=== PATIENT | female | born 1950 | race Caucasian/White ===

== ENCOUNTER 2022-05-08 00:02 | Emergency (ER) | payer BC, MEDICAID ==
[~2022-05-08] VITALS: Ht 152.4 cm; Wt 68.0 kg
[2022-05-08 01:33] LABS: Basophils # (auto) 0 10 ^3/uL (0-0.2); Basophils % (auto) 0.5 % (0.0-2.0); Eosinophils # (auto) 0.1 10 ^3/uL (0-0.8); Eosinophils % (auto) 1.1 % (0.0-7.0); Hematocrit 45.5 % (36.0-46.0); Hemoglobin 15.5 g/dL (12.2-16.2); Lymphocytes # (auto) 1.4 10 ^3/uL (0.4-5.4); Lymphocytes % (auto) 15.2 % (10.0-50.0); Mean Corpuscular Hemoglobin 32.5 pg (28.0-32.0); Mean Corpuscular Volume 95.6 fL (80.0-100.0); Monocytes % (auto) 11.4 % (0.0-12.0); Neutrophils # (auto) 6.4 10 ^3/uL (1.6-8.6); Neutrophils % (auto) 71.8 % (37.0-80.0); Nucleated Red Blood Cells % 0.1 %; Red Blood Cells 4.76 10^6/uL (4.0-5.20); Red Cell Distribution Width 14.5 % (11.8-14.3); White Blood Cell 8.9 10^3/uL (4.4-10.8)
[2022-05-08 01:50] LABS: Potassium 3.6 mmol/L (3.5-5.1)
[2022-05-08 01:54] LABS: Albumin 3.9 g/dL (3.4-5.0); BUN/Creatinine Ratio 20.1
[2022-05-08 01:57] LABS: Bilirubin, Total 0.6 mg/dL (0.2-1.0); Total Protein 6.8 g/dL (6.4-8.2)
[2022-05-08 03:10] VITALS: BP 102/70
== END 2022-05-08 03:59 | disposition home or self-care (01) ==
LOC: EDBD 00:02 → ER 00:02
DX: R55 Syncope and collapse (principal); T40.715A Adverse effect of cannabis, initial encounter; Y92.89 Other specified places as the place of occurrence of the external cause
CPT/HCPCS: 36415; 70450; 80053; 80320; 85025; 93005

== ENCOUNTER 2024-12-30 21:39 | Emergency (ER) | payer BC ==
[~2024-12-30] VITALS: Ht 154.9 cm; Wt 72.1 kg
[2024-12-30] MEDS: SODIUM CHLORIDE 0.9% 1,000 ML IV ONE (00:25)
[2024-12-30 22:43] VITALS: TEMP 99
--- NOTE | 2024-12-30 23:26 | DVH ---
CHEST RADIOGRAPH Indication: sob Technique: Single frontal view of the chest was obtained COMPARISON: CT CHEST WO/W on DOS: 06/19/23 FINDINGS: Lines and Tubes: None Lungs: 1.9 cm nodular density within the central left upper lung zone. No evidence of focal consolida tion. Pleura: No effusion. No pneumothorax. Cardiomediastinal contours: Unremarkable Bones: Unremarkable IMPRESSION: 1. No acute cardiopulmonary process. 2. 1.9 cm nodular density within the central left upper lung zone consistent with partially calcified pleural thickening described on prior CT chest.
[2024-12-30 23:28] LABS: Hematocrit 40.2 % (36.0-46.0); Hemoglobin 13.7 g/dL (12.2-16.2); Mean Corpuscular Hemoglobin 34.1 pg (28.0-32.0); Mean Corpuscular Volume 100.5 fL (80.0-100.0); Nucleated Red Blood Cells % 0.1 %
--- NOTE | 2024-12-30 23:29 | ED.PDOC ---
GI ASSESSMENT HPI Comments 74-year-old female who came to ER for nausea and vomiting. Patient has history of hypertension and COPD. At around 3:00 p.m. today, patient drank some protein shake/powder, and shortly afterwards she started having abdominal discomfort, with the episodes of nausea, vomiting and loose nonbloody diarrhea. Patient has a complaining of states shortness a breath. Upon arrival blood pressure was 217/105 mm Hg, and was saturating 95% on room air. Chief Complaint: Nausea/Vomiting Time Seen by MD: 23:28 Primary Care Provider: [employer] Reviewed Notes: Nurses Notes Allergies: Coded Allergies: NO KNOWN ALLERGIES (Unverified , 05/19/15) Home Meds No Active Prescriptions or Reported Meds Information Source: Patient Mode of Arrival: Ambulatory Timing: Hours Duration: Since onset Quality: Aching, Cramping Vomitus: Watery Stool: Loose, Watery Severity: Moderate Recent: Possible spoiled food Recent Hx of: None Pain Location: Epigastric Associated sign and symptoms: Nausea, Vomiting, Diarrhea, Abdominal Pain Past Medical History PAST MEDICAL HISTORY: COPD, HTN Surgical History: Denies all surgeries NOVELTIES SALES REPRESENTATIVE History: No Pertinent NOVELTIES SALES REPRESENTATIVE History Family History Family History: Unobtainable Social History Smoker: Non-Smoker Alcohol: Denies ETOH Use Drugs: Denies Drug Use Lives In: Home Constitutional: denies: chills, diaphoresis, fatigue, fever, malaise, sweats, weakness, others EENTM: denies: blurred vision, double vision, ear bleeding, ear discharge, ear drainage, ear pain, ear ringing, eye pain, eye redness, hearing loss, mouth pain, mouth swelling, nasal discharge, nose bleeding, nose congestion, nose pain, photophobia, tearing, throat pain, throat swelling, voice changes, others Respiratory: reports: shortness of breath; denies: cough, hemoptysis, orthopnea, SOB at rest, SOB with excertion, stridor, wheezing, others Cardiovascular: denies: chest pain, dizzy spells, diaphoresis, Dyspnea on exertion, edema, irregular heart beat, left arm pain, lightheadedness, palpitations, PND, syncope, others Gastrointestinal: reports: abdominal pain, diarrhea, nausea, vomiting; denies: abdomen distended, blood streaked bowels, constipated, dysphagia, difficulty swallowing, hematemesis, melena, poor appetite, poor fluid intake, rectal bleeding, rectal pain, others Genitourinary: denies: abnormal vagina bleeding, burning, dyspareunia, dysuria, flank pain, frequency, hematuria, incontinence, pain, , vagina discharge, urgency, others Neurological: denies: dizziness, fainting, headache, left sided numbness, left sided weakness, numbness, paresthesia, pre-existing deficit, right sided numbness, right sided weakness, seizure, speech problems, tingling, tremors, weakness, others Musculoskeletal: denies: back pain, gout, joint pain, joint swelling, muscle pain, muscle stiffness, neck pain, others Integumetry: denies: bruises, change in color, change in hair/nails, dryness, laceration, lesions, lumps, rash, wounds, others Allergic/Immunocompromised: denies: Difficulty Healing, Frequent Infections, Hives, Itching, others Hematologic/Lymphatic: denies: anemia, blood clots, easy bleeding, easy bruising, swollen glands, others Endocrine: denies: excessive hunger, excessive sweating, excessive thirst, excessive urination, flushing, intolerance to cold, intolerance to heat, une xplained weight gain, unexplained weight loss, others Psychiatric: denies: anxiety, bipolar disorder, depression, hopeless, panic disorder, schizophrenia, sleepless, suicidal, others Physical Exam General Appearance: No Apparent Distress, Normal HEENT: Normal ENT Inspection, Pharynx Normal, TMs Normal Neck: Full Range of Motion, Non-Tender, Normal, Normal Inspection Respiratory: Chest Non-Tender, Lungs Clear, No Accessory Muscle Use, No Respiratory Distress, Normal Breath Sounds Cardiovascular: No Edema, No JVD, No Murmur, No Gallop, Normal Peripheral Pulses, Regular Rate/Rhythm Breast Exam: Deferred Gastrointestinal: No Organomegaly, Non Tender, No Pulsatile Mass, Normal Bowel Sounds, Soft Genitalia: Deferred Pelvic: Deferred Rectal: Deferred Extremities: No calf tenderness, Normal capillary refill, Normal inspection, Normal range of motion, Non-tender, No pedal edema Musculoskeletal : Apperance: Normal Neurologic: Alert, circulation representative II-XII nml as Tested, No Motor Deficits, Normal Affect, Normal Mood, No Sensory Deficits Cerebellar Function: Normal Reflexes: Normal Skin: Dry, Normal Color, Warm Lymphatic: No Adenopathy Was a procedure done? Was a procedure done?: No GI differential Dx Differential Diagnosis: Diverticular disease, Gastritis/PUD, Gastroenteritis, UTI, Urolithiasis, Dehydration, Electrolyte Imbalance, Food Poisoning X-Ray, Labs, Meds, VS Vital Signs Date Time Temp Pulse Resp B/P (MAP) Pulse Ox O2 Delivery O2 Flow Rate FiO2 12/30/24 22:43 99.0 92 18 217/105 (142) 95 99.0 12/30/24 21:40 97.7 91 22 195/81 92 97.7 Lab Test 12/30/24 23:55 12/30/24 22:59 Range/Units Troponin I High Sensitivity 22 17 </=34 ng/L White Blood Count 6.7 4.4-10.8 10^3/uL Red Blood Count 4.00 4.0-5.20 10^6/uL Hemoglobin 13.7 12.2-16.2 g/dL Hematocrit 40.2 36.0-46.0 % Mean Corpuscular Volume 100.5 H 80.0-100.0 fL Mean Corpuscular Hemoglobin 34.1 H 28.0-32.0 pg Mean Corpuscular Hemoglobin Concent 34.0 32.0-36.0 g/dL Red Cell Distribution Width 14.7 H 11.8-14.3 % Platelet Count 310 140-450 10^3/uL Mean Platelet Volume 7.1 6.9-10.8 fL Neutrophils (%) (Auto) 83.4 H 37.0-80.0 % Lymphocytes (%) (Auto) 9.9 L 10.0-50.0 % Monocytes (%) (Auto) 5.5 0.0-12.0 % Eosinophils (%) (Auto) 0.3 0.0-7.0 % Basophils (%) (Auto) 0.9 0.0-2.0 % Neutrophils # (Auto) 5.6 1.6-8.6 10 ^3/uL Lymphocytes # (Auto) 0.7 0.4-5.4 10 ^3/uL Monocytes # (Auto) 0.4 0-1.3 10 ^3/uL Eosinophils # (Auto) 0 0-0.8 10 ^3/uL Basophils # (Auto) 0.1 0-0.2 10 ^3/uL Nucleated Red Blood Cells 0.1 % Sodium Level 138 136-145 mmol/L Potassium Level 3.6 3.5-5.1 mmol/L Chloride Level 101 98-107 mmol/L Carbon Dioxide Level 19 L 20-31 mmol/L Anion Gap 18 H 5-15 Blood Urea Nitrogen 25 H 9-23 mg/dL Creatinine 1.50 H 0.550-1.02 mg/dL Glomerular Filtration Rate Calc 37 >90 mL/min BUN/Creatinine Ratio 16.7 10.0-20.0 Serum Glucose 116 H 74-106 mg/dL Calcium Level 10.6 H 8.7-10.4 mg/dL Current Medications Medications (Trade) Dose Ordered Sig/Jose Carlos Route Start Time Stop Time Status Last Admin Sodium Chloride 1,000 ml @ 1,000 mls/hr Q1H ONCE IV 12/30/24 23:00 12/30/24 23:59 DC 12/30/24 00:25 Ondansetron HCl (Zofran) 4 mg ONCE ONCE IV 12/30/24 23:00 12/30/24 23:01 DC 12/30/24 23:30 Famotidine (Pepcid Injection) 20 mg ONCE ONCE IV 12/30/24 23:00 12/30/24 23:01 DC 12/30/24 23:30 CHEST RADIOGRAPH Indication: sob Technique: Single frontal view of the chest was obtained COMPARISON: CT CHEST WO/W on DOS: 06/19/23 FINDINGS: Lines and Tubes: None Lungs: 1.9 cm nodular density within the central left upper lung zone. No evidence of focal consolidation. Pleura: No effusion. No pneumothorax. Cardiomediastinal contours: Unremarkable Bones: Unremarkable IMPRESSION: 1. No acute cardiopulmonary process. 2. 1.9 cm nodular density within the central left upper lung zone consistent with partially calcified pleural thickening described on prior CT chest. Time of 1ST Reevaluation: 23:26 Reevaluation 1ST: Unchanged Patient Education/Counseling: Diagnosis, Treatment Family Education/Counseling: No Family Present SEPSIS Sepsis Screen Date sepsis recognized/suspect: Dec 30, 2024 Time Sepsis recognized/suspect: 2143 Recent Procedure: No On Antibiotic Therapy: No Respiratory Rate >20: Yes Heart Rate >90: Yes Temp<36 C (96.8 F) or >38.3 C: No SBP <90 or MAP <65 mmHG: No New Acute Mental Status Change: No Is the patient on CPAP, BIPAP,: No Physician Orders Urinalysis (12/30/24 22:53) Chest Portable (12/30/24 22:53) Electrocardigram (12/30/24 22:53) Electrocardigram (12/30/24 23:53) Electrocardigram (12/31/24 01:53) Hydralazine Injection (Apresoline Inject (12/31/24 02:00) Vital Signs Date Time Temp Pulse Resp B/P (MAP) Pulse Ox O2 Delivery O2 Flow Rate FiO2 12/30/24 22:43 99.0 92 18 217/105 (142) 95 99.0 12/30/24 21:40 97.7 91 22 195/81 92 97.7 Laboratory Tests Test 12/30/24 22:59 White Blood Count 6.7 10^3/uL (4.4-10.8) Medications Medications Dose Ordered Sig/Jose Carlos Route Start Time Stop Time Status Last Admin Dose Admin Famotidine 20 mg ONCE ONCE IV 12/30/24 23:00 12/30/24 23:01 DC 12/30/24 23:30 Ondansetron HCl 4 mg ONCE ONCE IV 12/30/24 23:00 12/30/24 23:01 DC 12/30/24 23:30 Sodium Chloride 1,000 ml @ 1,000 mls/hr Q1H ONCE IV 12/30/24 23:00 12/30/24 23:59 DC 12/30/24 00:25 Departure 1 Departure Time of Disposition: 01:50 (Patient presented with hypertension and symptoms concerning for hypertensive emergency. Patient is receiving iv blood pressure medications requiring intensive monitoring. Data: 1. I ordered and reviewed the result of at least 3 labs including a CBC, BMP, and Urinalysis. 2. I independently interpreted the following tests: Chest x-ray with a chronic nodule.. EKG which is Normal Sinus RhythmRisk:This patient has a high risk of morbidity due to further diagnostic testing or treatment and may suffer from an acute cardiac disorder. Workup reveals hypertensive emergency and patient should be admitted for further workup. and possible expert consultation. ) Impression: Primary Impression: Hypertensive urgency Additional Impressions: Shortness of breath Nausea and vomiting Disposition: ADMITTED INPATIENT Admit to: Tele Condition: Guarded e-Prescriptions No Active Prescriptions or Reported Meds Critical Care Note Critical Care Time?: Yes Critical care comment: Hypertensive urgency Authorized and Performed by: Tana Davila MD Total critical care time: Approximately 39 minutes Due to a high probability of clinically significant, life threatening deteriora tion, the patient required my highest level of preparedness to intervene emergently and I personally spent this critical care time directly and personally managing the patient. This critical care time included obtaining a history; examining the patient; pulse oximetry; ordering and review of studies; arranging urgent treatment with development of a management plan; evaluation of patient's response to treatment; frequent reassessment; and, discussions with other providers. This critical care time was performed to assess and manage the high probability of imminent, life-threatening deterioration that could result in multi-organ failure. It was exclusive of separately billable procedures and treating other patients and teaching time. Please see my other sections and the rest of the note for further information on patient assessment and treatment. Stability Stability form required: No Heart Score Heart Score: Heart Score Response (Comments) Value History N/A 0 EKG N/A 0 Age N/A 0 Risk Factors N/A 0 Troponin N/A 0 Total 0 I personally scribed for TANA DAVILA MD ([email or web address]) on 12/30/24 at 23:29. Electronically submitted by Andrea Mendez (Vinny). I personally scribed for TANA DAVILA MD ([email or web address]) on 12/31/24 at 00:41. Electronically submitted by Andrea Mendez (Vinny). TANA DAVILA MD Dec 30, 2024 23:29
[2024-12-30] MEDS: ONDANSETRON HCL 4 MG/2 ML VIAL IV ONE (23:30)
[2024-12-30] MEDS: FAMOTIDINE (10MG/ML) 2ML VL IV ONE (23:30)
[2024-12-30 23:38] LABS: Chloride 101 mmol/L (98-107); Potassium 3.6 mmol/L (3.5-5.1); Sodium 138 mmol/L (136-145)
[2024-12-30 23:39] LABS: Anion Gap 18 (5-15)
[2024-12-30 23:44] LABS: BUN/Creatinine Ratio 16.7 (10.0-20.0); Calcium 10.6 mg/dL (8.7-10.4); Carbon Dioxide 19 mmol/L (20-31)
[2024-12-30 23:47] LABS: Blood Urea Nitrogen 25 mg/dL (9-23); Glucose 116 mg/dL (74-106)
[2024-12-31] MEDS: IBUPROFEN 400 MG TAB PO ONE (02:03)
[2024-12-31] MEDS: hydrALAZINE HCL 20 MG/ML VL IV ONE (02:04)
[2024-12-31 02:36] VITALS: BP 150/80; PULSE 83; RESP 18; O2SAT 98
--- NOTE | 2024-12-31 02:49 | DVHINCON2 ---
Date of service: Dec 31, [address] Krishnamurthy Reason for Consultation Medical Management History of Present Illness Mrs. Viridiana Strickland is a 74-year-old female who with a history of Hypertension and COPD who presents with nausea and vomiting. Patient reported she drank some protein shake/powder, and shortly afterwards she started having abdominal discomfort, with the episodes of nausea, vomiting and loose nonbloody diarrhea. Upon arrival blood pressure was 217/105 mm Hg, and was saturating 95% on room air. Patient reports she did not take her blood pressure medication last night. Patient denied chest pain, abdominal pain, nausea, vomiting. I was consulted for medical management. Past Medical History Hypertension, COPD Past Surgical History none contributory Family History none contributory Social History none contributory Allergies: Coded Allergies: NO KNOWN ALLERGIES (Unverified , 05/19/15) Home Meds No Active Prescriptions or Reported Meds Review of Systems Negative ROS Vital Signs Vital Signs Date Time Temp Pulse Resp B/P (MAP) Pulse Ox O2 Delivery O2 Flow Rate FiO2 12/31/24 02:36 83 18 150/80 (103) 98 12/30/24 22:43 99.0 99.0 Physical Exam HEENT pupils are reactive Neck is supple CV is S1-S2 regular rate and rhythm Respiratory diminished breath sounds bases GI positive bowel sound Extremity no edema [employer] no motor deficit Labs/Diagnostic Data Labs Test 12/30/24 23:55 12/30/24 22:59 Range/Units Troponin I High Sensitivity 22 </=34 ng/L White Blood Count 6.7 4.4-10.8 10^3/uL Red Blood Count 4.00 4.0-5.20 10^6/uL Hemoglobin 13.7 12.2-16.2 g/dL Hematocrit 40.2 36.0-46.0 % Mean Corpuscular Volume 100.5 H 80.0-100.0 fL Mean Corpuscular Hemoglobin 34.1 H 28.0-32.0 pg Mean Corpuscular Hemoglobin Concent 34.0 32.0-36.0 g/dL Red Cell Distribution Width 14.7 H 11.8-14.3 % Platelet Count 310 140-450 10^3/uL Mean Platelet Volume 7.1 6.9-10.8 fL Neutrophils (%) (Auto) 83.4 H 37.0-80.0 % Lymphocytes (%) (Auto) 9.9 L 10.0-50.0 % Monocytes (%) (Auto) 5.5 0.0-12.0 % Eosinophils (%) (Auto) 0.3 0.0-7.0 % Basophils (%) (Auto) 0.9 0.0-2.0 % Neutrophils # (Auto) 5.6 1.6-8.6 10 ^3/uL Lymphocytes # (Auto) 0.7 0.4-5.4 10 ^3/uL Monocytes # (Auto) 0.4 0-1.3 10 ^3/uL Eosinophils # (Auto) 0 0-0.8 10 ^3/uL Basophils # (Auto) 0.1 0-0.2 10 ^3/uL Nucleated Red Blood Cells 0.1 % Sodium Level 138 136-145 mmol/L Potassium Level 3.6 3.5-5.1 mmol/L Chloride Level 101 98-107 mmol/L Carbon Dioxide Level 19 L 20-31 mmol/L Anion Gap 18 H 5-15 Blood Urea Nitrogen 25 H 9-23 mg/dL Creatinine 1.50 H 0.550-1.02 mg/dL Glomerular Filtration Rate Calc 37 >90 mL/min BUN/Creatinine Ratio 16.7 10.0-20.0 Serum Glucose 116 H 74-106 mg/dL Calcium Level 10.6 H 8.7-10.4 mg/dL Assessment This is a 74-year-old female who with a history of Hypertension and COPD who presents with nausea and vomiting. Patient reported she drank some protein shake/powder, and shortly afterwards she started having abdominal discomfort, with the episodes of nausea, vomiting and loose nonbloody diarrhea. Upon arrival blood pressure was 217/105 mm Hg, and was saturating 95% on room air. Patient reports she did not take her blood pressure medication last night. Patient was administered Hydralazine 20 mg IVP x1 in ED , 20 minutes later her blood pressure was 150/80, HR 83, Respirations 18, 02 saturations 98% on room air. Patient denied any chest pain, headaches, dizziness, nausea, vomiting, abdominal pain. Patient reports feeling better and would like to go home. Problems(with codes): (1) Nausea and vomiting Plan/Recommendation Recommendation discharge home , follow up with PCP, continue all medications as prescribed by PCP. Discussed with ED Physician Dr. Krishnamurthy. Plan discussed with: Patient, Other TINO ROBIN [facility] Dec 31, 2024 02:49
--- NOTE | 2024-12-31 03:00 | ED.PDOC ---
Departure 1 Departure Time of Disposition: 02:59 (Patient is reporting feeling significantly better and does not want to stay. We will discharge patient home with outpatient follow up) Impression: Primary Impression: Hypertensive urgency Additional Impressions: Shortness of breath Nausea and vomiting Qualified Codes: R11.2 - Nausea with vomiting, unspecified Disposition: 01 HOME / SELF CARE / HOMELESS Condition: Stable Additional Instructions: It is important to continue to take your regular medications. e-Prescriptions No Active Prescriptions or Reported Meds Discharged With: Self TANA SILVA MD Dec 31, 2024 03:00
== END 2024-12-31 03:13 | disposition home or self-care (01) ==
LOC: ER 21:39
DX: I16.0 Hypertensive urgency (principal); R11.2 Nausea with vomiting, unspecified; I10 Essential (primary) hypertension; J44.9 Chronic obstructive pulmonary disease, unspecified
CPT/HCPCS: 36415; 71045; 80048; 84484; 85025; 96361; 96374; 96375; 99284; J0360; J2405; J3490; J7030